=== PATIENT | female | born 1975 | race Caucasian/White ===

== ENCOUNTER 2018-04-26 09:03 | Emergency (ER) | payer BC ==
[2018-04-26 09:08] VITALS: RESP 16
--- NOTE | 2018-04-26 09:17 | ED ---
General Adult HPI - General Chief complaint: Extremity Injury, Upper Stated complaint: rt elbow injury Time Seen by Provider: 04/26/18 09:10 Source: patient, RN notes reviewed Mode of arrival: ambulatory Limitations: no limitations - History of Present Illness Initial comments: Patient 43-year-old female presenting to the emergency room today with a chief complaint of injury to the right elbow that occurred 4 days ago. Patient says she was walking down a dark hallway when she hit a door handle with the right elbow. Patient states it was a little sore for a few days. She states pain increased yesterday. Patient states worse with flexion extension and supination. Patient feeling pain over the lateral epicondyle. Patient denies any other injuries or complaints. - Related Data Home Medications Medication Instructions Recorded Confirmed Ibuprofen [Motrin] 200 - 400 mg PO Q6HR PRN 10/25/14 08/18/16 Levothyroxine Sodium [Synthroid] 100 mcg PO MOTUWETHFR 10/25/14 08/18/16 L.acidoph,Paracasei, B.lactis 1 tab PO DAILY 07/06/15 08/18/16 [Probiotic] Multivitamins, Thera [Multivitamin] 1 tab PO DAILY 07/06/15 08/18/16 Citalopram Hydrobromide 20 mg PO DAILY 08/18/16 08/18/16 [Citalopram HBr] Previous Rx's Medication Instructions Recorded Ibuprofen [Motrin] 600 mg PO Q6HR PRN #30 tab 07/14/15 Ibuprofen [Motrin] 800 mg PO Q6HR #30 tab 04/26/18 Allergies Allergy/AdvReac Type Severity Reaction Status Date / Time cephalexin monohydrate Allergy rash,swelli Verified 04/26/18 09:08 [From Keflex] ng hydromorphone HCl AdvReac Nausea & Verified 04/26/18 09:08 [From Dilaudid] Vomiting Review of Systems ROS Statement: Those systems with pertinent positive or pertinent negative responses have been documented in the HPI. ROS Other: All systems not noted in ROS Statement are negative. Past Medical History Past Medical History: Diabetes Mellitus, Eye Disorder, Hypertension, Thyroid Disorder Additional Past Medical History / Comment(s): Migraines,SWELLING DEIDRE FEET AND ANKLES,ANEMIA,HX PALPITATIONS- HAS HAD FOR YEARS R/T THYROID ?, MILD IBS, BORDERLINE DIABETIC- DIET CONTROLLED, HTN BORDERLINE-GOOD LAST FEW MONTHS, ENVIRONMENTAL ALLERGIES-SINUS & DRAINAGE, HEAVY MENSES WITH CLOTS-IRREGULAR- SURGERY ON 10/2014 DID NOT HELP-PAIN ACROSS ABDOMEN & BELOW NAVAL AREA WITH MENSES. GLASSES DAILY USE, STOPPED LOW DOSE BCP ABOUT A WEEK AGO. History of Any Multi-Drug Resistant Organisms: None Reported Past Surgical History: Cholecystectomy, Hysterectomy, Uterine Ablation Additional Past Surgical History / Comment(s): COLONOSCOPY, 10/27/14 D&C- HYSTEROSCOPY & ENDOMETRIAL ABLATION WITH NOVASURE Past Anesthesia/Blood Transfusion Reactions: No Reported Reaction Past Psychological History: Anxiety Smoking Status: Current some day smoker Past Alcohol Use History: Rare Past Drug Use History: None Reported - Past Family History Mother Family Medical History: Hypertension, Sleep Apnea/CPAP/BIPAP Additional Family Medical History / Comment(s): ARRYTHMIA Father Family Medical History: CVA/TIA, Diabetes Mellitus Additional Family Medical History / Comment(s): CVA AT AGE 50 Sister(s) Family Medical History: Blood Disorder Additional Family Medical History / Comment(s): THROMBOCYTOPENIA General Exam - General Exam Comments Initial Comments: General: The patient is awake and alert, in no distress, and does not appear acutely ill. Neck: The neck is supple, there is no tenderness or JVD. Musculoskeletal: Mild swelling to the lateral aspect of the right elbow. Patient shows good range of motion -10 with flexion and extension due to pain. Able to fully supinate. Patient does have tenderness over lateral epicondyle. Radial pulses 2+. Strength is 4/5 due to pain. No tenderness to the right shoulder down onto the right wrist. Neurological: A&O x 3. CN II-XII intact, There are no obvious motor or sensory deficits. Coordination appears grossly intact. Speech is normal. Skin: Skin is warm and dry and no rashes or lesions are noted. Psychiatric: Normal mood and affect. Limitations: no limitations Course Vital Signs 04/26/18 09:05 Temperature 98.6 F Pulse Rate 97 Respiratory 16 Rate Blood Pressure 159/92 O2 Sat by Pulse 98 Oximetry Medical Decision Making - Medical Decision Making Patient reexamined at this time shows no signs of distress or x-ray does show evidence for lateral epicondyles tendinopathy. Results were discussed with the patient. Patient is advised to continue with anti-inflammatories and follow-up with orthopedics. Disposition Clinical Impression: Lateral epicondylitis (tennis elbow) Disposition: HOME SELF-CARE Condition: Good Instructions: Tennis Elbow (ED) Additional Instructions: Please use medication as discussed. Please follow-up with orthopedic in the next 2 days of symptoms have not improved. Please return to emergency room if the symptoms increase or worsen or for any other concerns. Prescriptions: Ibuprofen [Motrin] 800 mg PO Q6HR #30 tab Is patient prescribed a controlled substance at d/c from ED?: No Referrals: Lui Aponte III, MD [Primary Care Provider] - 1-2 days Time of Disposition: 10:22
--- NOTE | 2018-04-26 09:51 | XR ---
EXAMINATION TYPE: XR elbow complete RT DATE OF EXAM: 04/26/2018 COMPARISON: NONE HISTORY: 43-year-old female contusion and pain TECHNIQUE: 3 views FINDINGS: There is ossific density measuring 9 x 3 mm at the lateral condyle and mild spurring at the medial co ndyle. No acute fracture, subluxation, dislocation. No elbow joint effusion. IMPRESSION: 1. A 9 x 3 mm ossific density adjacent to the lateral epicondyle. This has a chronic appearance sugge sting common extensor tendinopathy, possible prior avulsion injury/tear. 2. Lesser degree of changes suggesting additional common flexor tendinopathy. 3. No acute osseous abnormality seen.
[2018-04-26 10:28] VITALS: BP 128/74; PULSE 78; TEMP 97.7
== END 2018-04-26 10:27 | disposition home or self-care (01) ==
LOC: EC 09:03
DX: M77.11 Lateral epicondylitis, right elbow (principal); E07.9 Disorder of thyroid, unspecified; F41.9 Anxiety disorder, unspecified; F17.200 Nicotine dependence, unspecified, uncomplicated; Z88.1 Allergy status to other antibiotic agents; Z79.899 Other long term (current) drug therapy; W22.8XXA Striking against or struck by other objects, initial encounter; Y93.01 Activity, walking, marching and hiking; Y92.008 Other place in unspecified non-institutional (private) residence as the place of occurrence of the external cause
CPT/HCPCS: 99283

== ENCOUNTER → 2019-05-20 | Outpatient (CLI) | payer BC ==
--- NOTE | 2019-05-20 15:27 | US ---
EXAMINATION TYPE: US thyroid st tissue head/neck DATE OF EXAM: 05/20/2019 COMPARISON: 10/11/2015 CLINICAL HISTORY: E04.1 single thyroid nodule,E03.9 Hypothyroid. FOLLOW UP EXAM GLAND SIZE: Right Lobe: 6.3 X 2.4 X 2.0 cm Overall Parenchyma: heterogenous Left Lobe: 6.5 X 2.5 X 2.2 cm Overall Parenchyma: heterogeneous Isthmus Thickness: 0.6 cm NODULES RIGHT: # of nodules measured on right: No solid or suspicious nodules. LEFT: # of nodules measured on left: No solid or suspicious nodules. ISTHMUS: # of nodules measured in the isthmus: No solid or suspicious nodules. Diffusely heterogenous thyroid gland is seen throughout with innumerable subcentimeter cysts. Bilateral neck scanned, no evidence of lymphadenopathy. IMPRESSION: Innumerable subcentimeter cysts are seen within the thyroid gland. This can be seen in lymphocytic in filtration of chronic thyroiditis, Joshua's disease or multinodular goiter.
== END | disposition home or self-care (01) ==
LOC: RADUSWWP 13:23
PROVIDERS: ATTEND Family Medicine
DX: E04.2 Nontoxic multinodular goiter (principal); E03.9 Hypothyroidism, unspecified
CPT/HCPCS: 76536

== ENCOUNTER 2022-03-03 13:53 | Emergency (ER) | payer BC ==
[2022-03-03 14:13] VITALS: TEMP 98.3
[2022-03-03] MEDS ORDERED: SODIUM CHLORIDE 0.9% 1,000 ML IV STA (14:45)
[2022-03-03] MEDS ORDERED: ONDANSETRON 4 MG/2 ML VIAL IVP STA (14:45)
[2022-03-03] MEDS ORDERED: FAMOTIDINE 20 MG/2 ML VIAL IV STA (14:46)
[2022-03-03 15:42] LABS: Basophils # (A) 0.1 k/uL (0-0.2); Basophils % (A) 0 %; Eosinophils % (A) 0 %; HCT 35.6 % (34.0-46.0); HGB 12.3 gm/dL (11.4-16.0); Lymphocytes % (A) 8 %; MCH 28.8 pg (25.0-35.0); MCHC 34.5 g/dL (31.0-37.0); MCV 83.5 fL (80.0-100.0); Mean Platelet Volume 7.3; Monocytes # (A) 0.3 k/uL (0-1.0); Monocytes % (A) 3 %; Neutrophils % (A) 88 %; Platelet Count 260 k/uL (150-450); RBC 4.27 m/uL (3.80-5.40); RDW 13.1 % (11.5-15.5); WBC 12.5 k/uL (3.8-10.6)
[2022-03-03 15:45] LABS: Appearance,Urine Clear (Clear); Bacteria,Urine Occasional /hpf; Bilirubin,Urine Negative (Negative); Blood,Urine Small (Negative); Color,Urine Yellow; Glucose,Urine (UA) Negative (Negative); Ketones,Urine 1+ (Negative); Leukocyte Esterase,Urine Negative (Negative); Mucus,Urine Many /hpf; Nitrite,Urine Negative (Negative); Protein,Urine 1+ (Negative); RBC,Urine 12 /hpf (0-5); Specific Gravity,Urine 1.041 (1.001-1.035); Squamous Epithelial Cell,Urine 1 /hpf (0-4); Urobilinogen,Urine <2.0 mg/dL (<2.0); WBC,Urine 3 /hpf (0-5)
[2022-03-03 15:53] LABS: ALT 16 U/L (4-34); AST 22 U/L (14-36); African American GFR (CKD) >90 (>60 ml/min/1.73 sqM); Albumin 3.9 g/dL (3.5-5.0); Alkaline Phosphatase 78 U/L (38-126); Amylase 57 U/L (30-110); Anion Gap 7 mmol/L; Blood Urea Nitrogen 10 mg/dL (7-17); Calcium 8.6 mg/dL (8.4-10.2); Carbon Dioxide 25 mmol/L (22-30); Chloride 105 mmol/L (98-107); Glucose 148 mg/dL (74-99); Lipase 102 U/L (23-300); Non-African American GFR(CKD) >90 (>60 ml/min/1.73 sqM); Potassium 3.3 mmol/L (3.5-5.1); Sodium 137 mmol/L (137-145); Total Bilirubin 0.4 mg/dL (0.2-1.3); Total Protein 6.8 g/dL (6.3-8.2)
[2022-03-03] MEDS ORDERED: METOCLOPRAMIDE 5 MG/ML 2 ML VIAL IVP STA (16:03)
[2022-03-03] MEDS ORDERED: POTASSIUM CHLORIDE ER 10 MEQ TAB.ER.PRT PO STA (16:11)
--- NOTE | 2022-03-03 16:15 | ED ---
Nausea/Vomiting/Diarrhea HPI - General Chief complaint: Nausea/Vomiting/Diarrhea Stated complaint: Vomiting Time Seen by Provider: 03/03/22 14:34 Source: patient, family, RN notes reviewed Mode of arrival: ambulatory Limitations: no limitations - History of Present Illness Initial comments: This is a 47-year-old female who presents to the emergency department for nausea and vomiting. States that this started 2 days ago. She is unable to keep down any foods or liquids. Denies any associated abdominal pain or sick contacts. Also has no changes in bowel habits. She does have a mild headache and states that her temperature has reached 99F. Denies any chills, sore throat, cough, dyspnea, chest pain, palpitations, abdominal pain, diarrhea, or back pain. MD complaint: nausea, vomiting Onset/Timin -: days(s) Associated Abdominal Pain: No - Related Data Home Medications Medication Instructions Recorded Confirmed Cholecalciferol [Vitamin D3 (25 25 mcg PO DAILY 03/03/22 03/03/22 Mcg = 1000 Iu)] Levothyroxine Sodium [Synthroid] 25 mcg PO DAILY 03/03/22 03/03/22 Loratadine [Claritin] 10 mg PO DAILY PRN 03/03/22 03/03/22 Losartan/Hydrochlorothiazide 1 tab PO DAILY 03/03/22 03/03/22 [Losartan-Hctz 100-25 mg Tab] Metoprolol Succinate [Metoprolol 37.5 mg PO DAILY 03/03/22 03/03/22 Succinate ER] Omeprazole 20 mg PO DAILY 03/03/22 03/03/22 calcium polycarbophiL [Fibercon] 625 mg PO DAILY 03/03/22 03/03/22 metFORMIN HCL [Glucophage] 500 mg PO BID 03/03/22 03/03/22 Previous Rx's Medication Instructions Recorded Metoclopramide [Reglan] 5 mg PO Q8H PRN #20 tab 03/03/22 Ondansetron Odt [Zofran Odt] 4 mg PO Q8HR PRN #20 tab 03/03/22 Allergies Allergy/AdvReac Type Severity Reaction Status Date / Time cephalexin monohydrate Allergy rash,swelli Verified 03/03/22 16:58 [From Keflex] ng hydromorphone HCl AdvReac Nausea & Verified 03/03/22 16:58 [From Dilaudid] Vomiting Review of Systems ROS Statement: Those systems with pertinent positive or pertinent negative responses have been documented in the HPI. ROS Other: All systems not noted in ROS Statement are negative. Past Medical History Past Medical History: Diabetes Mellitus, Eye Disorder, Hypertension, Thyroid Disorder Additional Past Medical History / Comment(s): Migraines,SWELLING DEIDRE FEET AND ANKLES,ANEMIA,HX PALPITATIONS- HAS HAD FOR YEARS R/T THYROID ?, MILD IBS, BORDERLINE DIABETIC- DIET CONTROLLED, HTN BORDERLINE-GOOD LAST FEW MONTHS, ENVIRONMENTAL ALLERGIES-SINUS & DRAINAGE, HEAVY MENSES WITH CLOTS-IRREGULAR- SURGERY ON 10/2014 DID NOT HELP-PAIN ACROSS ABDOMEN & BELOW NAVAL AREA WITH MENSES. GLASSES DAILY USE, STOPPED LOW DOSE BCP ABOUT A WEEK AGO. History of Any Multi-Drug Resistant Organisms: None Reported Past Surgical History: Cholecystectomy, Hysterectomy, Uterine Ablation Additional Past Surgical History / Comment(s): COLONOSCOPY, 10/27/14 D&C- HYSTEROSCOPY & ENDOMETRIAL ABLATION WITH NOVASURE Past Anesthesia/Blood Transfusion Reactions: No Reported Reaction Past Psychological History: Anxiety Smoking Status: Never smoker Past Alcohol Use History: Rare Past Drug Use History: None Reported - Past Family History Mother Family Medical History: Hypertension, Sleep Apnea/CPAP/BIPAP Additional Family Medical History / Comment(s): ARRYTHMIA Father Family Medical History: CVA/TIA, Diabetes Mellitus Additional Family Medical History / Comment(s): CVA AT AGE 50 Sister(s) Family Medical History: Blood Disorder Additional Family Medical History / Comment(s): THROMBOCYTOPENIA General Exam Limitations: no limitations General appearance: alert, in distress Head exam: Present: atraumatic, normocephalic, normal inspection Respiratory exam: Present: normal lung sounds bilaterally. Absent: respiratory distress, wheezes, rales, rhonchi, stridor Cardiovascular Exam: Present: regular rate, normal rhythm, normal heart sounds. Absent: systolic murmur, diastolic murmur, rubs, gallop, clicks GI/Abdominal exam: Present: soft, hypoactive bowel sounds. Absent: distended, tenderness, guarding, rebound, rigid Neurological exam: Present: alert, oriented X3, CN II-XII intact Psychiatric exam: Present: normal affect, normal mood Skin exam: Present: warm, dry, intact, normal color. Absent: rash Course Vital Signs 03/03/22 03/03/22 14:10 18:23 Temperature 98.3 F Pulse Rate 117 H 112 H Respiratory 18 17 Rate Blood Pressure 150/78 144/70 O2 Sat by Pulse 95 94 L Oximetry Medical Decision Making - Medical Decision Making This is a 47-year-old female who presents to the emergency department for nausea and vomiting. She had mildly decreased potassium which was subsequently replaced with 10 mEq of K-dur. Lab work was otherwise nonactionable and she tested negative for COVID and influenza. She was treated with IV fluids, Pepcid, Zofran, and Reglan. Patient noted improvement following medication admi nistration and was able to tolerate oral intake with water and Jell-O. Prescriptions for Reglan and Zofran and sent to the patient's pharmacy. Instructed her to remain well-hydrated and advance oral intake as tolerated. Symptoms are most likely related to a viral gastroenteritis. Return precautions reviewed in depth, the patient is instructed to return to the emergency department with any new, worsening, or concerning symptoms. Patient verbalized understanding. This case was discussed in detail with the attending ED physician. Presentation, findings, and treatment plan discussed in detail as well. - Lab Data Result diagrams: 03/03/22 15:25 03/03/22 15:25 Lab Results 03/03/22 03/03/22 03/03/22 Range/Units 15:25 15:25 15:25 WBC 12.5 H (3.8-10.6) k/uL RBC 4.27 (3.80-5.40) m/uL Hgb 12.3 (11.4-16.0) gm/dL Hct 35.6 (34.0-46.0) % MCV 83.5 (80.0-100.0) fL MCH 28.8 (25.0-35.0) pg MCHC 34.5 (31.0-37.0) g/dL RDW 13.1 (11.5-15.5) % Plt Count 260 (150-450) k/uL MPV 7.3 Neutrophils % 88 % Lymphocytes % 8 % Monocytes % 3 % Eosinophils % 0 % Basophils % 0 % Neutrophils # 11.0 H (1.3-7.7) k/uL Lymphocytes # 1.0 (1.0-4.8) k/uL Monocytes # 0.3 (0-1.0) k/uL Eosinophils # 0.0 (0-0.7) k/uL Basophils # 0.1 (0-0.2) k/uL Sodium 137 (137-145) mmol/L Potassium 3.3 L (3.5-5.1) mmol/L Chloride 105 (98-107) mmol/L Carbon Dioxide 25 (22-30) mmol/L Anion Gap 7 mmol/L BUN 10 (7-17) mg/dL Creatinine 0.55 (0.52-1.04) mg/dL Est GFR (CKD-EPI)AfAm >90 (>60 ml/min/1.73 sqM) Est GFR (CKD-EPI)NonAf >90 (>60 ml/min/1.73 sqM) Glucose 148 H (74-99) mg/dL Calcium 8.6 (8.4-10.2) mg/dL Total Bilirubin 0.4 (0.2-1.3) mg/dL AST 22 (14-36) U/L ALT 16 (4-34) U/L Alkaline Phosphatase 78 (38-126) U/L Total Protein 6.8 (6.3-8.2) g/dL Albumin 3.9 (3.5-5.0) g/dL Amylase 57 (30-110) U/L Lipase 102 (23-300) U/L Urine Color Yellow Urine Appearance Clear (Clear) Urine pH 6.0 (5.0-8.0) Ur Specific [place] 1.041 H (1.001-1.035) Urine Protein 1+ H (Negative) Urine Glucose (UA) Negative (Negative) Urine Ketones 1+ H (Negative) Urine Blood Small H (Negative) Urine Nitrite Negative (Negative) Urine Bilirubin Negative (Negative) Urine Urobilinogen <2.0 (<2.0) mg/dL Ur Leukocyte Esterase Negative (Negative) Urine RBC 12 H (0-5) /hpf Urine WBC 3 (0-5) /hpf Ur Squamous Epith Cells 1 (0-4) /hpf Urine Bacteria Occasional H (None) /hpf Urine Mucus Many H (None) /hpf Coronavirus (PCR) (Not Detectd) Influenza Type A RNA (Not Detectd) Influenza Type B (PCR) (Not Detectd) 03/03/22 03/03/22 Range/Units 15:25 15:25 WBC (3.8-10.6) k/uL RBC (3.80-5.40) m/uL Hgb (11.4-16.0) gm/dL Hct (34.0-46.0) % MCV (80.0-100.0) fL MCH (25.0-35.0) pg MCHC (31.0-37.0) g/dL RDW (11.5-15.5) % Plt Count (150-450) k/uL MPV Neutrophils % % Lymphocytes % % Monocytes % % Eosinophils % % Basophils % % Neutrophils # (1.3-7.7) k/uL Lymphocytes # (1.0-4.8) k/uL Monocytes # (0-1.0) k/uL Eosinophils # (0-0.7) k/uL Basophils # (0-0.2) k/uL Sodium (137-145) mmol/L Potassium (3.5-5.1) mmol/L Chloride (98-107) mmol/L Carbon Dioxide (22-30) mmol/L Anion Gap mmol/L BUN (7-17) mg/dL Creatinine (0.52-1.04) mg/dL Est GFR (CKD-EPI)AfAm (>60 ml/min/1.73 sqM) Est GFR (CKD-EPI)NonAf (>60 ml/min/1.73 sqM) Glucose (74-99) mg/dL Calcium (8.4-10.2) mg/dL Total Bilirubin (0.2-1.3) mg/dL AST (14-36) U/L ALT (4-34) U/L Alkaline Phosphatase (38-126) U/L Total Protein (6.3-8.2) g/dL Albumin (3.5-5.0) g/dL Amylase (30-110) U/L Lipase (23-300) U/L Urine Color Urine Appearance (Clear) Urine pH (5.0-8.0) Ur Specific [place] (1.001-1.035) Urine Protein (Negative) Urine Glucose (UA) (Negative) Urine Ketones (Negative) Urine Blood (Negative) Urine Nitrite (Negative) Urine Bilirubin (Negative) Urine Urobilinogen (<2.0) mg/dL Ur Leukocyte Esterase (Negative) Urine RBC (0-5) /hpf Urine WBC (0-5) /hpf Ur Squamous Epith Cells (0-4) /hpf Urine Bacteria (None) /hpf Urine Mucus (None) /hpf Coronavirus (PCR) Not Detected (Not Detectd) Influenza Type A RNA Not Detected (Not Detectd) Influenza Type B (PCR) Not Detected (Not Detectd) Disposition Clinical Impression: Gastroenteritis Disposition: HOME SELF-CARE Instructions (If sedation given, give patient instructions): Gastroenteritis (ED), Acute Nausea and Vomiting (ED) Additional Instructions: Return to the emergency department with any new, worsening, or concerning symptoms. Take the Reglan and/or Zofran for nausea and vomiting. Slowly advance your diet as tolerated and ensure that you remain well-hydrated. Follow up with your primary care provider next week for reevaluation of symptoms. Prescriptions: Metoclopramide [Reglan] 5 mg PO Q8H PRN #20 tab PRN Reason: Nausea And Vomiting Ondansetron Odt [Zofran Odt] 4 mg PO Q8HR PRN #20 tab PRN Reason: Nausea And Vomiting Is patient prescribed a controlled substance at d/c from ED?: No Referrals: Lui Aponte III, MD [Primary Care Provider] - 1-2 days
[2022-03-03] MEDS ORDERED: ONDANSETRON 4 MG ODT STARTER PACK 2 TAB BTL PO STA (17:40)
[2022-03-03 18:24] VITALS: BP 144/70; PULSE 112; RESP 17
== END 2022-03-03 18:27 | disposition home or self-care (01) ==
LOC: EC 13:53
DX: K52.9 Noninfective gastroenteritis and colitis, unspecified (principal); E11.9 Type 2 diabetes mellitus without complications; E07.9 Disorder of thyroid, unspecified; Z79.899 Other long term (current) drug therapy; Z20.822 Contact with and (suspected) exposure to COVID-19; Z88.1 Allergy status to other antibiotic agents; Z88.5 Allergy status to narcotic agent
CPT/HCPCS: 36415; 80053; 82150; 83690; 85025; 81001; 87502; 87635; 99284; 96374; 96375; 96361; J2765; J2405; S0119

== ENCOUNTER 2022-03-05 10:56 | Inpatient (IN) | payer BC, OTHER ==
[2022-03-05] MEDS ORDERED: ACETAMINOPHEN TAB 500 MG TAB PO STA (13:25)
[2022-03-05] MEDS ORDERED: IBUPROFEN 600 MG TAB PO STA (13:25)
[2022-03-05] MEDS ORDERED: ONDANSETRON 4 MG/2 ML VIAL IVP STA (13:26)
--- NOTE | 2022-03-05 13:31 | ED ---
General Adult HPI - General Chief complaint: Recheck/Abnormal Lab/Rx Stated complaint: revisit - dehydration Time Seen by Provider: 03/05/22 13:00 Source: patient, RN notes reviewed, old records reviewed Mode of arrival: ambulatory Limitations: no limitations - History of Present Illness Initial comments: This is a 47-year-old female who presents emergency Department stating that on she started having a fever and became nauseated and started to vomit. Patient states she was seen in the emergency department and hydrated up and went home however she continues to have a headache and some nausea but she's not vomiting. She hasn't eaten anything. Patient denies any numbness or weakness. Patient complained of some left-sided neck stiffness but is able to move her neck without issue. Patient denies any chest pain palpitations. Patient states she does have a cough but it's dry nature. Patient denies abdominal pain patient denies any diarrhea. Patient denies any dysuria hematuria urinary frequency. - Related Data Home Medications Medication Instructions Recorded Confirmed Cholecalciferol [Vitamin D3 (25 25 mcg PO DAILY 03/03/22 03/03/22 Mcg = 1000 Iu)] Levothyroxine Sodium [Synthroid] 25 mcg PO DAILY 03/03/22 03/03/22 Loratadine [Claritin] 10 mg PO DAILY PRN 03/03/22 03/03/22 Losartan/Hydrochlorothiazide 1 tab PO DAILY 03/03/22 03/03/22 [Losartan-Hctz 100-25 mg Tab] Metoprolol Succinate [Metoprolol 37.5 mg PO DAILY 03/03/22 03/03/22 Succinate ER] Omeprazole 20 mg PO DAILY 03/03/22 03/03/22 calcium polycarbophiL [Fibercon] 625 mg PO DAILY 03/03/22 03/03/22 metFORMIN HCL [Glucophage] 500 mg PO BID 03/03/22 03/03/22 Previous Rx's Medication Instructions Recorded Metoclopramide [Reglan] 5 mg PO Q8H PRN #20 tab 03/03/22 Ondansetron Odt [Zofran Odt] 4 mg PO Q8HR PRN #20 tab 03/03/22 Allergies Allergy/AdvReac Type Severity Reaction Status Date / Time cephalexin monohydrate Allergy rash,swelli Verified 03/05/22 11:35 [From Keflex] ng hydromorphone HCl AdvReac Nausea & Verified 03/05/22 11:35 [From Dilaudid] Vomiting Review of Systems ROS Statement: Those systems with pertinent positive or pertinent negative responses have been documented in the HPI. ROS Other: All systems not noted in ROS Statement are negative. Past Medical History Past Medical History: Diabetes Mellitus, Eye Disorder, Hypertension, Thyroid Disorder Additional Past Medical History / Comment(s): Migraines,SWELLING DEIDRE FEET AND ANKLES,ANEMIA,HX PALPITATIONS- HAS HAD FOR YEARS R/T THYROID ?, MILD IBS, BORDERLINE DIABETIC- DIET CONTROLLED, HTN BORDERLINE-GOOD LAST FEW MONTHS, ENVIRONMENTAL ALLERGIES-SINUS & DRAINAGE, HEAVY MENSES WITH CLOTS-IRREGULAR- SURGERY ON 10/2014 DID NOT HELP-PAIN ACROSS ABDOMEN & BELOW NAVAL AREA WITH MENSES. GLASSES DAILY USE, STOPPED LOW DOSE BCP ABOUT A WEEK AGO. History of Any Multi-Drug Resistant Organisms: None Reported Past Surgical History: Cholecystectomy, Hysterectomy, Uterine Ablation Additional Past Surgical History / Comment(s): COLONOSCOPY, 10/27/14 D&C- HYSTEROSCOPY & ENDOMETRIAL ABLATION WITH NOVASURE Past Anesthesia/Blood Transfusion Reactions: No Reported Reaction Past Psychological History: Anxiety Smoking Status: Never smoker Past Alcohol Use History: Rare Past Drug Use History: None Reported - Past Family History Mother Family Medical History: Hypertension, Sleep Apnea/CPAP/BIPAP Additional Family Medical History / Comment(s): ARRYTHMIA Father Family Medical History: CVA/TIA, Diabetes Mellitus Additional Family Medical History / Comment(s): CVA AT AGE 50 Sister(s) Family Medical History: Blood Disorder Additional Family Medical History / Comment(s): THROMBOCYTOPENIA General Exam - General Exam Comments Initial Comments: GENERAL: Patient is well-developed and well-nourished. Patient is nontoxic and well- hydrated and is in mild distress. Patient's temperature was 101.4 ENT: Neck is soft and supple. No significant lymphadenopathy is noted. Oropharynx is clear. Moist mucous membranes. Neck has full range of motion without eliciting any pain. EYES: The sclera were anicteric and conjunctiva were pink and moist. Extraocular mo vements were intact and pupils were equal round and reactive to light. Eyelids were unremarkable. PULMONARY: Unlabored respirations. Good breath sounds bilaterally. Slight crackles left base CARDIOVASCULAR: There is a regular rate and rhythm without any murmurs gallops or rubs. ABDOMEN: Soft and nontender with normal bowel sounds. SKIN: Skin is clear with no lesions or rashes and otherwise unremarkable. NEUROLOGIC: Patient is alert and oriented x3. Cranial nerves II through XII are grossly intact. Motor and sensory are also intact. Normal speech, volume and content. Symmetrical smile. MUSCULOSKELETAL: Normal extremities with adequate strength and full range of motion. LYMPHATICS: No significant lymphadenopathy is noted PSYCHIATRIC: Normal psychiatric evaluation. Limitations: no limitations Course Vital Signs 03/05/22 11:30 Temperature 98.2 F Pulse Rate 107 H Respiratory 18 Rate Blood Pressure 136/75 O2 Sat by Pulse 91 L Oximetry Medical Decision Making - Medical Decision Making Chest x-ray shows a left lower lobe pneumonia. I started the patient on Levaquin. Patient did not feel good about home at this time so I will admitting the patient. Spoke with Dr. Raines he agreed to admit the patient admitted the patient wrote admitting orders - Lab Data Result diagrams: 03/05/22 13:45 03/05/22 13:45 Lab Results 03/05/22 03/05/22 03/05/22 Range/Units 13:45 13:45 13:45 WBC 12.2 H (3.8-10.6) k/uL RBC 4.02 (3.80-5.40) m/uL Hgb 11.6 (11.4-16.0) gm/dL Hct 33.3 L (34.0-46.0) % MCV 82.9 (80.0-100.0) fL MCH 28.9 (25.0-35.0) pg MCHC 34.9 (31.0-37.0) g/dL RDW 13.4 (11.5-15.5) % Plt Count 336 (150-450) k/uL MPV 7.7 Neutrophils % 81 % Lymphocytes % 12 % Monocytes % 4 % Eosinophils % 1 % Basophils % 0 % Neutrophils # 9.9 H (1.3-7.7) k/uL Lymphocytes # 1.5 (1.0-4.8) k/uL Monocytes # 0.5 (0-1.0) k/uL Eosinophils # 0.1 (0-0.7) k/uL Basophils # 0.0 (0-0.2) k/uL Sodium 137 (137-145) mmol/L Potassium 3.4 L (3.5-5.1) mmol/L Chloride 101 (98-107) mmol/L Carbon Dioxide 29 (22-30) mmol/L Anion Gap 7 mmol/L BUN 7 (7-17) mg/dL Creatinine 0.50 L (0.52-1.04) mg/dL Est GFR (CKD-EPI)AfAm >90 (>60 ml/min/1.73 sqM) Est GFR (CKD-EPI)NonAf >90 (>60 ml/min/1.73 sqM) Glucose 130 H (74-99) mg/dL Plasma Lactic Acid Kamaljit 0.9 (0.7-2.0) mmol/L Calcium 8.0 L (8.4-10.2) mg/dL Total Bilirubin 0.5 (0.2-1.3) mg/dL AST 23 (14-36) U/L ALT 20 (4-34) U/L Alkaline Phosphatase 82 (38-126) U/L Total Protein 6.2 L (6.3-8.2) g/dL Albumin 3.5 (3.5-5.0) g/dL Coronavirus (PCR) (Not Detectd) Influenza Type A RNA (Not Detectd) Influenza Type B (PCR) (Not Detectd) 03/05/22 03/05/22 Range/Units 13:57 13:57 WBC (3.8-10.6) k/uL RBC (3.80-5.40) m/uL Hgb (11.4-16.0) gm/dL Hct (34.0-46.0) % MCV (80.0-100.0) fL MCH (25.0-35.0) pg MCHC (31.0-37.0) g/dL RDW (11.5-15.5) % Plt Count (150-450) k/uL MPV Neutrophils % % Lymphocytes % % Monocytes % % Eosinophils % % Basophils % % Neutrophils # (1.3-7.7) k/uL Lymphocytes # (1.0-4.8) k/uL Monocytes # (0-1.0) k/uL Eosinophils # (0-0.7) k/uL Basophils # (0-0.2) k/uL Sodium (137-145) mmol/L Potassium (3.5-5.1) mmol/L Chloride (98-107) mmol/L Carbon Dioxide (22-30) mmol/L Anion Gap mmol/L BUN (7-17) mg/dL Creatinine (0.52-1.04) mg/dL Est GFR (CKD-EPI)AfAm (>60 ml/min/1.73 sqM) Est GFR (CKD-EPI)NonAf (>60 ml/min/1.73 sqM) Glucose (74-99) mg/dL Plasma Lactic Acid Kamaljit (0.7-2.0) mmol/L Calcium (8.4-10.2) mg/dL Total Bilirubin (0.2-1.3) mg/dL AST (14-36) U/L ALT (4-34) U/L Alkaline Phosphatase (38-126) U/L Total Protein (6.3-8.2) g/dL Albumin (3.5-5.0) g/dL Coronavirus (PCR) Not Detected (Not Detectd) Influenza Type A RNA Not Detected (Not Detectd) Influenza Type B (PCR) Not Detected (Not Detectd) Disposition Clinical Impression: Pneumonia Disposition: ADMITTED IP TO THIS HOSP Referrals: Werner Raines MD [Primary Care Provider] - 1-2 days Time of Disposition: 15:23
[2022-03-05] MEDS: SODIUM CHLORIDE 0.9% 500 ML 500 ML IV SCH ×3 (13:55→14:50)
[2022-03-05 14:41] LABS: Basophils % (A) 0 %; Eosinophils # (A) 0.1 k/uL (0-0.7); Eosinophils % (A) 1 %; HCT 33.3 % (34.0-46.0); HGB 11.6 gm/dL (11.4-16.0); Lymphocytes # (A) 1.5 k/uL (1.0-4.8); Lymphocytes % (A) 12 %; MCH 28.9 pg (25.0-35.0); MCHC 34.9 g/dL (31.0-37.0); MCV 82.9 fL (80.0-100.0); Mean Platelet Volume 7.7; Monocytes # (A) 0.5 k/uL (0-1.0); Monocytes % (A) 4 %; Neutrophils # (A) 9.9 k/uL (1.3-7.7); Neutrophils % (A) 81 %; Platelet Count 336 k/uL (150-450); RBC 4.02 m/uL (3.80-5.40); RDW 13.4 % (11.5-15.5); WBC 12.2 k/uL (3.8-10.6)
--- NOTE | 2022-03-05 14:41 | XR ---
EXAMINATION TYPE: XR chest 2V DATE OF EXAM: 03/05/2022 COMPARISON: NONE HISTORY: Fever TECHNIQUE: Frontal and lateral views of the chest are obtained. FINDINGS: Patchy increased density is present bilaterally. No evident pneumothorax or pleural effusi on. Cardiac mediastinal silhouette is within normal limits. Bone mineralization is within normal limi ts. IMPRESSION: Correlate for pneumonia. Follow-up is recommended.
[2022-03-05 14:49] LABS: ALT 20 U/L (4-34); AST 23 U/L (14-36); African American GFR (CKD) >90 (>60 ml/min/1.73 sqM); Albumin 3.5 g/dL (3.5-5.0); Alkaline Phosphatase 82 U/L (38-126); Anion Gap 7 mmol/L; Blood Urea Nitrogen 7 mg/dL (7-17); Carbon Dioxide 29 mmol/L (22-30); Chloride 101 mmol/L (98-107); Glucose 130 mg/dL (74-99); Non-African American GFR(CKD) >90 (>60 ml/min/1.73 sqM); Potassium 3.4 mmol/L (3.5-5.1); Sodium 137 mmol/L (137-145); Total Bilirubin 0.5 mg/dL (0.2-1.3); Total Protein 6.2 g/dL (6.3-8.2)
[2022-03-05] MEDS ORDERED: LEVOFLOXACIN 750MG-D5W PMX 750 MG in DEXTROSE/WATER 1 150ML.BAG IVPB STA (15:02)
[2022-03-05] MEDS ORDERED: PNEUMONIA PROTOCOL UTILIZED 1 EACH MISC PO PRN (15:23)
[2022-03-05] MEDS ORDERED: ACETAMINOPHEN TAB 325 MG TAB PO PRN (15:23)
[2022-03-05] MEDS: SODIUM CHLORIDE 0.9% 1,000 ML IV SCH ×2 (15:48→23:31)
--- NOTE | 2022-03-05 16:35 | CT ---
EXAMINATION TYPE: CT brain wo con CT DLP: 1115.4 mGycm, Automated exposure control for dose reduction was used. DATE OF EXAM: 03/05/2022 4:18 PM COMPARISON: None. CLINICAL INDICATION:Female, 47 years old with history of Headache acute. TECHNIQUE: Brain: Multiple axial CT images of the brain were obtained without IV contrast. FINDINGS: Brain: Extra-axial spaces: No abnormal extra-axial fluid collections. Ventricular system: Within normal limits Cerebral parenchyma: No acute intraparenchymal hemorrhage or mass effect. The shaver-white junction is well differentiated. Cerebellum: Unremarkable. Mass effect: No evidence of midline shift. Intracranial vasculature: unremarkable Soft tissues: Normal. Calvarium/osseous structures: No depressed skull fracture. Paranasal sinuses and mastoid air cells: Mild scattered paranasal sinus disease. Visualized orbits: Orbital contents are intact. IMPRESSION: No acute intracranial process.
[2022-03-05] MEDS ORDERED: LORATADINE 10 MG TAB PO PRN (18:10)
[2022-03-05] MEDS ORDERED: ONDANSETRON ODT 4 MG TAB PO PRN (18:10)
[2022-03-05] MEDS ORDERED: METOCLOPRAMIDE 5 MG TAB PO PRN (18:10)
[2022-03-05] MEDS ORDERED: IPRATROPIUM-ALBUTEROL 3 ML NEB INHALATION PRN (18:11)
[2022-03-05 20:20] LABS: Glucose,Whole Blood 121 mg/dL (70-110)
[2022-03-05] MEDS: HEPARIN SODIUM,PORCINE/PF 5,000 UNIT/0.5 ML SYRINGE SQ SCH (20:27)
[2022-03-05] MEDS: metFORMIN 500 MG TAB PO SCH (21:17)
--- NOTE | 2022-03-05 23:00 | P.HPIM ---
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 Patient developed to have severe left-sided trigeminal headache along with high fever or chills continue to have significant debility lightheadedness and presyncope like symptoms with mild cough wheezes and slight dyspnea with minimum exertion. Was seen and evaluated at the time with the current symptom with mild neck rigidity was sent to the emergency department to do CAT scan of the brain further study for infection possible require lumbar puncture with spinal fluid analysis to exclude the possibility of aseptic meningitis. Patient ended up seen at the emergency department her testing including white blood cell was 12,200 with left shifted, mildly low potassium with normal kidney function PCR of COVID-19 was negative negative influenza A and B. Chest x-ray surprisingly was compatible with patchy infiltrate by basilar consistent with pneumonia. Patient was started on IV Levaquin along with Solu-Medrol updraft treatment oxygen and supportive care with [facility] did not feel the need to do LP at this point. REVIEW OF SYSTEMS Constitutional: positive fever chills night sweats and generalized weakness fatigue and malaise. EENT: No headache. No blurred vision or double vision, no loss of vision. No loss of Hearing, no ringing in the ears, no dizziness. No nasal drainage or congestion. No epistaxis. No sore throat. Lungs: positive shortness of breath with cough wheezes and tightness. Cardiovascular: No chest pain, no lower extremity edema. No palpitations. No paroxysmal nocturnal dyspnea. No orthopnea. No lightheadedness or dizziness. No syncopal episodes. Abdominal: slight abdominal discomfort with nausea vomiting and diarrhea no tarry stool or bloody stool. Genitourinary: No dysuria, increased frequency, urgency. No urinary retention. Musculoskeletal: No myalgias. No muscle weakness, no gait dysfunction, no frequent falls. No back pain. No neck pain. Integumentary: No wounds, no lesions. No rash or pruritus. No unusual bruising. No change in hair or nails. Neurologic: No aphasia. No facial droop. No change in mentation. No head injury. No headache. No paralysis. No paresthesia. Psychiatric: No depression. No anxiety. No mood swings. Endocrine: No abnormal blood sugars. No weight change. No excessive sweating or thirst. No cold intolerance. 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 FAMILY HISTORY her mother dying her 50s from most likely atherosclerotic heart disease and DC, his father is in his 60s has rheumatoid arthritis, type 2 diabetes and hypertension. Patient has one sister who is living and well, she has to children with no major medical problem. PHYSICAL EXAMINATION Gen: This is mildly overweight laying in bed does not look in any respiratory distress looking more comfortable. HEENT: Head is atraumatic, normocephalic. Pupils equal, round. Sclerae is anicteric. NECK: slight stiffness. No JVD. No lymphadenopathy. No thyromegaly. LUNGS: decreased breath Regis acute fine rhonchi positive crackles in the bases positive mild inspiratory expiratory wheezes. HEART: Regular rate and rhythm. No murmur. ABDOMEN: Soft. Bowel sounds are present. No masses. No tenderness. EXTREMITIES: No pedal edema. No calf tenderness. NEUROLOGICAL: Patient is awake, alert and oriented x3. Cranial nerves 2 through 12 are grossly intact. ASSESSMENT AND PLAN - bilateral lower lobe pneumonia: With failure to outpatient treatment and worsening dyspnea and shortness of breath, patient be hospitalized, we'll continue Solu-Medrol, updraft and Levaquin for now continue to watch patient pulse ox and next 24 hours. - Significant fever and chills with worsening symptoms consistent with pneumonia and has enteritis continue supportive care, Tylenol and fluid will be done. - Significant headache mild trigeminal discomfort in the left side, after evaluating patient and there is no sign of meningism or meningitis at this point CAT scan of the brain was negative will continue to treat and watch patient clinical assessment regularly. - reactive airway: Continue oxygen, continue updraft treatment at this time. - Type 2 diabetes: Continue metformin Accu-Chek with sliding scales will be done. - hypertension: Has been on losartan HCTZ 100/25 mg daily. - Hypothyroidism: Resume levothyroxine at 25 g daily. - Mild gastroparesis: Patient has been on omeprazole, Zofran and Reglan. - Severe GERD: Remain on omeprazole regularly. - GI prophylaxis: Continue on pantoprazole 40 mg daily. - DVT prophylaxis: Heparin 5000 units subcutaneous twice a day will be done. Patient will be admitted to the hospital for a minimum of 2 night stay. Past Medical History Past Medical History: Diabetes Mellitus, Eye Disorder, Hypertension, Thyroid Disorder Additional Past Medical History / Comment(s): Migraines,SWELLING DEIDRE FEET AND ANKLES,ANEMIA,HX PALPITATIONS- HAS HAD FOR YEARS R/T THYROID ?, MILD IBS, BORDERLINE DIABETIC- DIET CONTROLLED, HTN BORDERLINE-GOOD LAST FEW MONTHS, ENVIRONMENTAL ALLERGIES-SINUS & DRAINAGE, HEAVY MENSES WITH CLOTS-IRREGULAR- SURGERY ON 10/2014 DID NOT HELP-PAIN ACROSS ABDOMEN & BELOW NAVAL AREA WITH MENSES. GLASSES DAILY USE, STOPPED LOW DOSE BCP ABOUT A WEEK AGO. History of Any Multi-Drug Resistant Organisms: None Reported Past Surgical History: Cholecystectomy, Hysterectomy, Uterine Ablation Additional Past Surgical History / Comment(s): COLONOSCOPY, 10/27/14 D&C- HYSTEROSCOPY & ENDOMETRIAL ABLATION WITH NOVASURE Past Anesthesia/Blood Transfusion Reactions: No Reported Reaction Past Psychological History: Anxiety Smoking Status: Never smoker Past Alcohol Use History: Rare Past Drug Use History: None Reported - Past Family History Mother Family Medical History: Hypertension, Sleep Apnea/CPAP/BIPAP Additional Family Medical History / Comment(s): ARRYTHMIA Father Family Medical History: CVA/TIA, Diabetes Mellitus Additional Family Medical History / Comment(s): CVA AT AGE 50 Sister(s) Family Medical History: Blood Disorder Additional Family Medical History / Comment(s): THROMBOCYTOPENIA Medications and Allergies Home Medications Medication Instructions Recorded Confirmed Type Cholecalciferol [Vitamin D3 (25 25 mcg PO DAILY 03/03/22 03/05/22 History Mcg = 1000 Iu)] Levothyroxine Sodium [Synthroid] 25 mcg PO DAILY 03/03/22 03/05/22 History Loratadine [Claritin] 10 mg PO DAILY PRN 03/03/22 03/05/22 History Losartan/Hydrochlorothiazide 1 tab PO DAILY 03/03/22 03/05/22 History [Losartan-Hctz 100-25 mg Tab] Metoclopramide [Reglan] 5 mg PO Q8H PRN #20 tab 03/03/22 03/05/22 Rx Metoprolol Succinate [Metoprolol 37.5 mg PO DAILY 03/03/22 03/05/22 History Succinate ER] Omeprazole 20 mg PO DAILY 03/03/22 03/05/22 History Ondansetron Odt [Zofran Odt] 4 mg PO Q8HR PRN #20 tab 03/03/22 03/05/22 Rx calcium polycarbophiL [Fibercon] 625 mg PO DAILY 03/03/22 03/05/22 History metFORMIN HCL [Glucophage] 500 mg PO BID 03/03/22 03/05/22 History Allergies Allergy/AdvReac Type Severity Reaction Status Date / Time cephalexin monohydrate Allergy rash,swelli Verified 03/05/22 15:31 [From Keflex] ng hydromorphone HCl AdvReac Nausea & Verified 03/05/22 15:31 [From Dilaudid] Vomiting Physical Exam Vitals: Vital Signs Temp Pulse Resp BP Pulse Ox 03/05/22 17:53 98.4 F 86 18 116/78 96 03/05/22 16:00 99.3 F 03/05/22 12:30 100.2 F H 104 H 22 134/86 92 L 03/05/22 12:20 100.4 F H 03/05/22 11:30 98.2 F 107 H 18 136/75 91 L Intake and Output 03/05/22 03/05/22 03/05/22 06:59 14:59 22:59 Other: Weight 113.398 kg Results CBC & Chem 7: 03/05/22 13:45 03/05/22 13:45 Labs: Abnormal Lab Results - Last 24 Hours (Table) 03/05/22 03/05/22 Range/Units 13:45 13:45 WBC 12.2 H (3.8-10.6) k/uL Hct 33.3 L (34.0-46.0) % Neutrophils # 9.9 H (1.3-7.7) k/uL Potassium 3.4 L (3.5-5.1) mmol/L Creatinine 0.50 L (0.52-1.04) mg/dL Glucose 130 H (74-99) mg/dL Calcium 8.0 L (8.4-10.2) mg/dL Total Protein 6.2 L (6.3-8.2) g/dL
[2022-03-05] MEDS: methylPREDNISolone SOD SUCCI 40 MG/ML 1 ML VIAL IV SCH (23:30)
[2022-03-06] MEDS ORDERED: LEVOTHYROXINE 25 MCG TAB PO SCH (06:30)
[2022-03-06 07:09] LABS: Appearance,Urine Clear (Clear); Bacteria,Urine Occasional /hpf; Bilirubin,Urine Negative (Negative); Blood,Urine Trace (Negative); Color,Urine Yellow; Glucose,Urine (UA) Negative (Negative); Ketones,Urine 2+ (Negative); Leukocyte Esterase,Urine Negative (Negative); Mucus,Urine Rare /hpf; Nitrite,Urine Negative (Negative); PH, Urine 6.5 (5.0-8.0); Protein,Urine Negative (Negative); RBC,Urine 1 /hpf (0-5); Specific Gravity,Urine 1.013 (1.001-1.035); Squamous Epithelial Cell,Urine <1 /hpf (0-4); WBC,Urine 2 /hpf (0-5)
[2022-03-06 07:09] LABS: Glucose,Whole Blood 179 mg/dL (70-110)
[2022-03-06] MEDS ORDERED: PANTOPRAZOLE 40 MG TABLET PO SCH (07:30)
[2022-03-06 07:34] VITALS: BP 148/84; PULSE 83; RESP 18; TEMP 98.9
[2022-03-06] MEDS: SODIUM CHLORIDE 0.9% 1,000 ML IV SCH (08:17)
[2022-03-06] MEDS: HEPARIN SODIUM,PORCINE/PF 5,000 UNIT/0.5 ML SYRINGE SQ SCH (08:17)
[2022-03-06] MEDS: metFORMIN 500 MG TAB PO SCH (08:17)
[2022-03-06] MEDS: methylPREDNISolone SOD SUCCI 40 MG/ML 1 ML VIAL IV SCH (08:17)
--- NOTE | 2022-03-06 08:38 | XR ---
EXAMINATION TYPE: XR chest 2V DATE OF EXAM: 03/06/2022 COMPARISON: 03/05/2022 TECHNIQUE: PA and lateral views submitted. HISTORY: Fever FINDINGS: Lateral patchy consolidation injury noted with tiny bilateral effusions. No pneumothorax. Heart size stable. Coarsened interstitium. Hypertrophic changes spine. IMPRESSION: 1. Bilateral infiltrate with small effusion stable
[2022-03-06] MEDS ORDERED: LOSARTAN-HCTZ 50-12.5 MG 1 EACH TAB PO SCH (09:00)
[2022-03-06] MEDS ORDERED: METOPROLOL SUCCINATE (ER) 25 MG TAB.ER.24H PO SCH (09:00)
[2022-03-06] MEDS ORDERED: CHOLECALCIFEROL 25 MCG (1000 IU) TABLET PO SCH (09:00)
[2022-03-06] MEDS ORDERED: LEVOFLOXACIN 750 MG TAB PO SCH (09:00)
[2022-03-06 11:40] LABS: Glucose,Whole Blood 171 mg/dL (70-110)
--- NOTE | 2022-03-06 11:56 | P.DS ---
Providers Date of admission: 03/05/22 15:25 Expected date of discharge: 03/06/22 Attending physician: Werner Raines Primary care physician: 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 Patient developed to have severe left-sided trigeminal headache along with high fever or chills continue to have significant debility lightheadedness and presyncope like symptoms with mild cough wheezes and slight dyspnea with minimum exertion. Was seen and evaluated at the time with the current symptom with mild neck rigidity was sent to the emergency department to do CAT scan of the brain further study for infection possible require lumbar puncture with spinal fluid analysis to exclude the possibility of aseptic meningitis. Patient ended up seen at the emergency department her testing including white blood cell was 12,200 with left shifted, mildly low potassium with normal kidney function PCR of COVID-19 was negative negative influenza A and B. Chest x-ray surprisingly was compatible with patchy infiltrate by basilar consistent with pneumonia. Patient was started on IV Levaquin along with Solu-Medrol updraft treatment oxygen and supportive care with brain MRI be negative [facility] department did not feel the need to do LP at this point. 03/06: Patient states that she is feeling better today and her headache is gone. She has been afebrile, heart rate 83, blood pressure 148/84, pulse ox 92% on room air. Capillary blood glucose running between 121 and 179. Repeat chest x-ray reveals bilateral infiltrate and small effusion stable. Patient will be discharged home today in stable condition. DISCHARGE DIAGNOSES - bilateral lower lobe pneumonia: With failure to outpatient treatment - Significant fever and chills with worsening symptoms consistent with pneumonia and has enteritis - Significant headache mild trigeminal discomfort in the left side - reactive airway - Type 2 diabetes - hypertension - Hypothyroidism - Mild gastroparesis - Severe GERD DISCHARGE PLAN Home Greater than 35 minutes was utilized and coordinating patient's discharge. Impression and plan of care have been directed as dictated by the signing physician. Sophia Schulz nurse practitioner acting as scribe for signing physician. Patient Condition at Discharge: Good Plan - Discharge Summary Discharge Rx Participant: No New Discharge Prescriptions: New Benzonatate [Tessalon Perle] 200 mg PO TID #30 capsule Levofloxacin [Levaquin] 750 mg PO DAILY #5 tab methylPREDNISolone Dose Pack [Medrol Dose Pack] 4 mg PO DIRECTED #1 packet Albuterol Sulfate [Proventil Hfa] 1 puff INHALATION Q4-6H PRN #6.7 gm PRN Reason: Wheezing Continue Omeprazole 20 mg PO DAILY metFORMIN HCL [Glucophage] 500 mg PO BID Metoprolol Succinate [Metoprolol Succinate ER] 37.5 mg PO DAILY Metoclopramide [Reglan] 5 mg PO Q8H PRN #20 tab PRN Reason: Nausea And Vomiting calcium polycarbophiL [Fibercon] 625 mg PO DAILY Loratadine [Claritin] 10 mg PO DAILY PRN PRN Reason: Allergy Symptoms Cholecalciferol [Vitamin D3 (25 Mcg = 1000 Iu)] 25 mcg PO DAILY Losartan/Hydrochlorothiazide [Losartan-Hctz 100-25 mg Tab] 1 tab PO DAILY Levothyroxine Sodium [Synthroid] 25 mcg PO DAILY Ondansetron Odt [Zofran ODT] 4 mg PO Q8HR PRN #20 tab PRN Reason: Nausea And Vomiting Discharge Medication List Cholecalciferol [Vitamin D3 (25 Mcg = 1000 Iu)] 25 mcg PO DAILY 03/03/22 [History] Levothyroxine Sodium [Synthroid] 25 mcg PO DAILY 03/03/22 [History] Loratadine [Claritin] 10 mg PO DAILY PRN 03/03/22 [History] Losartan/Hydrochlorothiazide [Losartan-Hctz 100-25 mg Tab] 1 tab PO DAILY 03/03/22 [History] Metoclopramide [Reglan] 5 mg PO Q8H PRN #20 tab 03/03/22 [Rx] Metoprolol Succinate [Metoprolol Succinate ER] 37.5 mg PO DAILY 03/03/22 [ History] Omeprazole 20 mg PO DAILY 03/03/22 [History] Ondansetron Odt [Zofran ODT] 4 mg PO Q8HR PRN #20 tab 03/03/22 [Rx] calcium polycarbophiL [Fibercon] 625 mg PO DAILY 03/03/22 [History] metFORMIN HCL [Glucophage] 500 mg PO BID 03/03/22 [History] Albuterol Sulfate [Proventil Hfa] 1 puff INHALATION Q4-6H PRN #6.7 gm 03/06/22 [Rx] Benzonatate [Tessalon Perle] 200 mg PO TID #30 capsule 03/06/22 [Rx] Levofloxacin [Levaquin] 750 mg PO DAILY #5 tab 03/06/22 [Rx] methylPREDNISolone Dose Pack [Medrol Dose Pack] 4 mg PO DIRECTED #1 packet 03/06/22 [Rx] Follow up Appointment(s)/Referral(s): Werner Raines MD [Primary Care Provider] - 03/12/22 9:45 am Discharge Disposition: HOME SELF-CARE
== END 2022-03-06 13:32 | disposition home or self-care (01) | DRG 194 ==
LOC: EC 10:56 → 4SSUR 15:25
PROVIDERS: ADMIT Internal Medicine Geriatric Medicine; ATTEND Internal Medicine Geriatric Medicine
DX: J18.9 Pneumonia, unspecified organism (principal); Z68.41 Body mass index [BMI] 40.0-44.9, adult; E11.43 Type 2 diabetes mellitus with diabetic autonomic (poly)neuropathy; E03.9 Hypothyroidism, unspecified; I10 Essential (primary) hypertension; K31.84 Gastroparesis; E86.0 Dehydration; E78.5 Hyperlipidemia, unspecified; Z20.822 Contact with and (suspected) exposure to COVID-19; E66.3 Overweight; K52.9 Noninfective gastroenteritis and colitis, unspecified; K21.9 Gastro-esophageal reflux disease without esophagitis; M43.6 Torticollis; F41.9 Anxiety disorder, unspecified; Z79.890 Hormone replacement therapy; Z79.84 Long term (current) use of oral hypoglycemic drugs; Z88.8 Allergy status to other drugs, medicaments and biological substances; Z88.5 Allergy status to narcotic agent; Z90.49 Acquired absence of other specified parts of digestive tract; Z90.710 Acquired absence of both cervix and uterus; Z79.899 Other long term (current) drug therapy; Z98.890 Other specified postprocedural states; Z82.49 Family history of ischemic heart disease and other diseases of the circulatory system; Z83.3 Family history of diabetes mellitus; Z83.2 Family history of diseases of the blood and blood-forming organs and certain disorders involving the immune mechanism; Z82.3 Family history of stroke; Z84.89 Family history of other specified conditions; Z82.61 Family history of arthritis
CPT/HCPCS: 36415; 70450; 71046; 80053; 81001; 83605; 85025; 87040; 87502; 87635; 96361; 96365; 96375; 99285